=== PATIENT | female | born 1955 | race Caucasian/White ===

== ENCOUNTER → 2020-06-13 | Outpatient (CLI) | payer OTHER ==
[~2020-06-13] MED LIST: ASCO100T4 PO; IOHEXOL 180 MG/ML 10 ML VIAL. ONE; LISI10TA2 PO; MULT-245 PO; OMEG100021 PO; THYR60TA PO; methylPREDNISolone ACETATE 40 MG/ML VIAL. ONE; methylPREDNISolone ACETATE 80 MG/ML VIAL. ONE
--- NOTE | 2020-06-13 13:01 | PDOC1 ---
INITIAL PAIN CONSULT DATE OF SERVICE: DOS: DATE: 06/13/20 TIME: 12:54 CHIEF COMPLAINT: Chief Complaint: Neck and right upper extremity pain HISTORY OF PRESENT ILLNESS: 65-year-old female presents with history of pain in the base of the neck and right upper extremity for about 3 months now not the result of any specific injury or accident that she is aware of is getting worse with time and being active specially playing golf is most noticeable. Patient reports she is recently retired and she has been getting more active with golfing and activities and is beginning to become more noticeable with radiating pain in the base the neck shoulder posteriorly posterior upper arm into the forearm occasionally with numbness and tingling in the thumb and first finger at times but mostly in the upper arm in the triceps region patient reports throbbing shooting can be constant with activity has some numbness radiation into the arm and hand as well patient reports it wakes her from sleep about twice a night does not affect her bowel bladder control or ability to walk or most daily activities but she is putting up with the pain with activities. Patient has been trigger point junctions in her shoulder which was helpful temporarily also some chiropractic treatment which was done 5 times which were again temporarily helpful only. Patient did have a MRI scan of the cervical spine showing at C4-5 and C5-6 hypertrophy on the right with mild right foraminal stenosis and facet hypertrophy C5-6 shows mild right neuroforaminal stenosis as well. Patient rates her disability rating 0-10 10 being the worst as a 2 with in-house hospitalist recreation 5 with social activity 3 with sexual behavior 5 with self-care and 5 life support activities patient reports no loss of motor function but significant fatigability of the right arm and repetitive motions reaching over her head with her right arm. PAST MEDICAL HISTORY: PMH: Arthritis, hypertension PREVIOUS SURGERIES: Past Surgical Hx: Uterine prolapse 1999, total abdominal hysterectomy 2005, breast implants CURRENT MEDICATIONS: Current Meds: Active Scripts Medications Dose Route/Sig Max Daily Dose Days Date Category Fish Oil 1,000 mg Softgel ([place]-3/Dha/Epa/Fish Oil) 1,000 Mg Capsule 1,000 Mg PO DAILY 06/13/20 Reported Vitamin C (Ascorbic Acid) 100 Mg Tablet Unknown Dose PO DAILY 30 06/13/20 Reported Multi Vitamin Daily (Multivitamin) 1 Each Tablet 1 Tab PO DAILY 06/13/20 Reported Lisinopril 10 Mg Tablet 1 Tab PO DAILY 06/13/20 Reported [place] Thyroid (Thyroid,Pork) 60 Mg Tablet 1 Tab PO DAILY 06/13/20 Reported ALLERGIES; Allergies: Coded Allergies: Penicillins (Verified Allergy, Severe, Anaphylaxis, 06/13/20) aspirin (Verified Allergy, Severe, Anaphylaxis, 06/13/20) FAMILY HISTORY: Family Hx: Heart disease, diabetes SOCIAL HISTORY: Social Hx: Patient drinks alcohol about 1 drink 4 times a week smokes a illegal illicit recreational drugs is lives with her spouse 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 Extraocular movements are intact and symmetrical. Oral cavity: Mucous membranes moist and pink. Dentition is intact. NECK: Shows anterior throat supple without palpable lymphadenopathy noted. Swallow reflex symmetrical. CHEST: Shows normal on inspection. Breath sounds are clear bilaterally, no rales or rhonchi or wheezes auscultated. HEART: Shows S1, S2 clear. No murmurs auscultated. ABDOMEN: Soft, nontender, nondistended, flat. No palpable organomegaly is noted. No rebound or guarding demonstrated. BACK: Shows spine grossly in the midline. Normal-appearing cervical lordotic curvature. Cervical paraspinous muscle shows symmetrical inspection on palpation some moderate tenderness diffusely in the inferior aspect the cervical paraspinous muscles are more on the right than the left but present bilaterally patient's neck shows full rotation motion both laterally greater than 45 degrees right level is full extension full for flexion without significant difficulty. There is slightly increased thoracic kyphosis, some minor flattening of the lumbar lordotic curvature. Lumbar paraspinous muscles show symmetrical on inspection, on palpation shows some moderate tenderness diffusely throughout the upper, middle and lower distribution of the paraspinous muscles bilaterally, but without specific trigger points, without radiation of pain. EXTREMITIES: Upper extremities show deep tendon reflexes 2+ in the exception triceps tendons. Motor exam is 5 on a scale of 5 with right rib strength, biceps and triceps flexion and 5/5 on the left. Peripheral pulses are 2+ radial. No peripheral edema is noted bilaterally. Upper extremities are warm and dry to touch, equal in color and appearance. SKIN: Shows warm and dry, good turgor. No edema. No sores, rashes or bruising throughout. IMPRESSION: Impression: 65-year-old female with 3-month history increasing pain base of neck right upper extremity shoulder in a radicular fashion MRI scan cervical spine as noted Arthritis Hypertension Plan: Options were discussed with the patient including conservative medical management physical therapies and interventional techniques. Patient elects interventional techniques. We discussed a cervical epidural steroid injection using description as well as anatomical models to describe the procedure. Risks were discussed including but not limited to: Bleeding, infection, possibility of epidural hematoma and subsequent neurological compromise, dural puncture, headaches, spinal cord and/or nerve damage, side effects of steroid medication, and poor results regarding pain control. Patient understands wished to proceed. Patient will return to clinic in approximate 2 weeks for follow-up, was counseled as to return appointment activity level and side effects to be aware of. Procedure cervical epidural steroid injection at the C6-7 level, using local anesthetic under sterile prep and drape using C-arm fluoroscopic guidance under local anesthesia medications injected ; 120 mg Depo-Medrol + 5 mL normal saline and 2 mL contrast; condition at discharge is stable patient tolerated procedure well. and had no complications GINA COKER MD Jun 13, 2020 13:01
== END | disposition home or self-care (01) ==
LOC: PNCL 10:12
PROVIDERS: ATTEND Anesthesiology
DX: M54.2 Cervicalgia (principal); I10 Essential (primary) hypertension; M79.601 Pain in right arm; M19.90 Unspecified osteoarthritis, unspecified site; Z79.899 Other long term (current) drug therapy; Z98.890 Other specified postprocedural states; Z82.49 Family history of ischemic heart disease and other diseases of the circulatory system; Z83.3 Family history of diabetes mellitus; Z88.0 Allergy status to penicillin; Z88.8 Allergy status to other drugs, medicaments and biological substances; Z90.710 Acquired absence of both cervix and uterus
CPT/HCPCS: 62321; J1030; J1040; Q9965

== ENCOUNTER → 2021-10-15 | Outpatient (CLI) | payer OTHER ==
[~2021-10-15] MED LIST changes: -IOHEXOL 180 MG/ML 10 ML VIAL. ONE; +LISI10TA16 PO; -LISI10TA2 PO; +[UNRECOGNIZED DRUG - MIXTURE]; -methylPREDNISolone ACETATE 40 MG/ML VIAL. ONE; -methylPREDNISolone ACETATE 80 MG/ML VIAL. ONE
--- NOTE | 2021-10-15 11:28 | PDOC ---
Progress Note - Pain Clinic Date of Service: DOS: DATE: 10/15/21 TIME: 11:23 Diagnosis: Dx: Cervical radiculopathy with cervical degenerative disease and cervical spinal stenosis History or Present Illness: HPI: 66-year-old female returns last seen May 2020 patient did very well after cervical epidural steroid injection with a 98% improvement until July of this year the pain began to return not the result of any specific injury or accident that she is aware of but is getting worse in the base the neck and the right shoulder and upper extremity patient reports its a 5 on a scale 10 is worst average and least is a 5 today aching tight constant in the base the neck and shoulder rating the right upper extremity into the bicep as well as in the forearm and into the hand with some numbness and tingling in the fingers primarily the thumb and first finger on the right side only patient reports no r ecent injury she is been very active however the past year or so but did very well until just the past few weeks patient reports she had a new MRI scan of the cervical spine and we do have the report from that dated September 27, 2021 showing mild cervical spondylotic change with C6-7 mild disc base narrowing with mild bilateral foraminal narrowing as well as mild bilateral foraminal narrowing at C5-6 as well. Patient reports pain is constant aching tight worse with activity reaching her hand over her head on the right side waking her from sleep about once a night on average initially to do much better with distance walking doing household activities recreational activities travel with greater ease and comfort playing golf with greater ability and comfort as well. Patient reports functional significant fatigability of the right upper extremity. Patient continues to do daily exercises stretching and strengthening as well as weight lifting at her gym as well as at home also taking [id number] Aleve which helps but only by about 10 to 20%. Patient has tried Tylenol without significant improvement as well. Physical Exam: VS: Blood pressure is 120/69 pulse 58 respirations 16 temperature 97.9 F height is 5 feet 3-1/2 inches weight is 109 pounds. PE: PHYSICAL EXAMINATION: GENERAL: The patient is awake, alert, oriented, appropriate, very pleasant in demeanor HEENT: Shows normocephalic, atraumatic. Extraocular movements are intact and symmetrical. Oral cavity: Mucous membranes moist and pink. Dentition is intact. NECK: Shows anterior throat supple without palpable lymphadenopathy noted. Swallow reflex symmetrical. CHEST: Shows normal on inspection. Breath sounds are clear bilaterally, no rales or rhonchi or wheezes. HEART: Shows S1, S2 clear. No murmurs auscultated. ABDOMEN: Soft, nontender, nondistended. No palpable organomegaly is noted. BACK: Shows spine grossly in the midline. Normal-appearing cervical lordotic curvature. Cervical paraspinous muscles show symmetrical inspection, palpation some moderate tenderness diffusely bilaterally diffusely without significant radiation. Patient shows good rotation motion cervical spine with some moderate tenderness with right lateral rotation as well as extension but not with forward flexion. There is slightly increased thoracic kyphosis, some minor flattening of the lumbar lordotic curvature. EXTREMITIES: Upper extremities show deep tendon reflexes 2+ in the biceps and triceps tendons. Motor exam is 4 on a scale of 5 with right blunger, biceps and tricep flexion and 5/5 on the left. Peripheral pulses are 2+ radial. No peripheral edema is noted bilaterally. Upper extremities are warm and dry to touch, equal in color and appearance. SKIN: Shows warm and dry, good turgor. No edema. No sores, rashes or bruising throughout. Procedure: Procedure: Options were discussed with the patient. Patient's old chart was reviewed as her current medication regimen updated current review of systems updated today as well. We will preauthorize patient for a cervical epidural steroid injection as he did very well with these in the past with similar symptoms of increasing in the right upper extremity in a radicular fashion following a C6-7 dermatomal distribution as previously. Patient wait for preauthorization with her insurance provider, once approved we will have her return for translaminar approach C6-7 level cervical epidural steroid injection with fluoroscopic guidance. In meantime patient continue with stretching strength exercises well as daily exercise oral analgesics as currently. Medication Injected: Med Injected: None Condition at Discharge: Condition at Discharge: Condition at discharge is stable. GINA COKER MD Oct 15, 2021 11:28
== END | disposition home or self-care (01) ==
LOC: PNCL 10:22
PROVIDERS: ATTEND Anesthesiology
DX: M50.10 Cervical disc disorder with radiculopathy, unspecified cervical region (principal); M48.02 Spinal stenosis, cervical region; Z79.899 Other long term (current) drug therapy
CPT/HCPCS: 99212; G0463

== ENCOUNTER → 2021-10-29 | Outpatient (CLI) | payer OTHER ==
[~2021-10-29] MED LIST changes: +DEXAMETHASONE PRES.FREE 10 MG/ML VIAL. ONE; +IOHEXOL 180 MG/ML 10 ML VIAL. ONE
--- NOTE | 2021-10-29 10:08 | PDOC ---
Progress Note - Pain Clinic Date of Service: DOS: DATE: 10/29/21 TIME: 10:04 Diagnosis: Dx: Cervical radiculopathy with cervical degenerative disc disease and cervical spinal stenosis History or Present Illness: HPI: 66-year-old female returns for follow-up status post cervical epidural steroid injection in May 2020 patient did very well for over a year with pain returning initially in the right upper extremity only but now also in the left upper extremity which is new for her with some tingling in the left hand patient reports traditionally always been on the right side but is now on the left side as well patient reports is a 6 on scale 10 at all times worst least and average over the past week and a 6 today patient cries pain is tingling in the hands burning radiating the neck aching tight in the neck as well as radiating shooting into the upper extremities bilaterally. Patient reports no loss of motor function but significant fatigability with the right upper extremity but not as much fatigability with the left upper extremity. Patient reports no overt motor loss has not been dropping items patient reports it does awaken her from sleep about once every 4 hours or so. Patient reports no bowel or bladder incontinence. Physical Exam: VS: Blood pressure is 112/69 pulse 67 respirations 16 temperature is 98.4 F weight is 110 pounds. PE: PHYSICAL EXAMINATION: GENERAL: The patient is awake, alert, oriented, appropriate, very pleasant in demeanor HEENT: Shows normocephalic, atraumatic. Extraocular movements are intact and symmetrical. Oral cavity: Mucous membranes moist and pink. Dentition is intact. NECK: Shows anterior throat supple without palpable lymphadenopathy noted. Swallow reflex symmetrical. CHEST: Shows normal on inspection. Breath sounds are clear bilaterally. HEART: Shows S1, S2 clear. No murmurs auscultated. ABDOMEN: Soft, nontender, nondistended. No palpable organomegaly is noted. BACK: Shows spine grossly in the midline. Normal-appearing cervical lordotic curvature. Cervical paraspinous muscles show symmetrical with inspection, on palpation some moderate tenderness diffusely bilaterally diffusely without significant radiation in the middle and lower distribution the paraspinous muscles patient shows good rotation of motion cervical spine with lateral as well as extension flexion without significant increase in pain or difficulty. There is slightly increased thoracic kyphosis, some minor flattening of the lumbar lordotic curvature. EXTREMITIES: Upper extremities show deep tendon reflexes 2+ in the biceps and triceps tendons. Motor exam is 4 on a scale of 5 with right inspector publications, biceps and tricep flexion and 5/5 on the left. Peripheral pulses are 2+ radial. No peripheral edema is noted bilaterally. Upper extremities are warm and dry to touch, equal in color and appearance. SKIN: Shows warm and dry, good turgor. No edema. No sores, rashes or bruising throughout. Procedure: Procedure: Options discussed with the patient. Patient's old chart was use her current medication regimen updated current review of systems updated today as well. We will proceed with a cervical epidural steroid injection today with fluoroscopic guidance. Risks were discussed including but not limited to: Bleeding, infection, possibility of epidural hematoma and subsequent neurological compromise, dural puncture, headaches, spinal cord and/or nerve damage, side effects of steroid medication, and poor results regarding pain control. Patient understands and wished to proceed. Patient will return to clinic in approximately week to follow-up, was counseled as to return appointment, activity level, and side effect to be aware of. Medication Injected: Med Injected: Procedure cervical epidural steroid injection at the C6-7 level, using local anesthetic under sterile prep and drape using C-arm fluoroscopic guidance under local anesthesia medications injected ; 20 mg dexamethasone +5 mL normal saline and 2 mL contrast; condition at discharge is stable patient tolerated procedure well. and had no complications Condition at Discharge: Condition at Discharge: Condition at discharge stable, paced tolerated the procedure well and had no complications. GINA COKER MD October 29, 2021 10:08
--- NOTE | 2021-10-29 10:09 | PDOC4 ---
Procedure Note: ICD 10 Code: ICD 10 Code: M54.12 M50.30 M48.02 Procedure Note: Patient was consented for cervical epidural steroid injection fluoroscopic guidance risks were discussed including but not limited to: Bleeding, infection, possibility of epidural hematoma and subsequent neurological compromise, dural puncture, headaches, spinal cord and/or nerve damage, side effects of steroid medication, and poor results regarding pain control. Patient understands and wished to proceed. Procedure cervical epidural steroid injection at the C6-7 level, using local anesthetic under sterile prep and drape using C-arm fluoroscopic guidance under local anesthesia medications injected ; 20 mg dexamethasone +5 mL normal saline and 2 mL contrast; condition at discharge is stable patient tolerated procedure well. and had no complications GINA COKER MD October 29, 2021 10:09
== END | disposition home or self-care (01) ==
LOC: PNCL 08:33
PROVIDERS: ATTEND Anesthesiology
DX: M50.10 Cervical disc disorder with radiculopathy, unspecified cervical region (principal); M48.02 Spinal stenosis, cervical region; M54.12 Radiculopathy, cervical region; Z79.899 Other long term (current) drug therapy; Z88.0 Allergy status to penicillin; Z88.8 Allergy status to other drugs, medicaments and biological substances
CPT/HCPCS: 62321; J1100; Q9965

== ENCOUNTER → 2021-11-12 | Outpatient (CLI) | payer OTHER ==
--- NOTE | 2021-11-12 10:03 | PDOC4 ---
Procedure Note: ICD 10 Code: ICD 10 Code: M54.12 M50.30 M48.02 Procedure Note: Patient consented for cervical epidural steroid injection with fluoroscopic guidance. Risks were discussed including but not limited to: Bleeding, infection, possibility of epidural hematoma and subsequent neurological compromise, dural puncture, headaches, spinal cord and/or nerve damage, side effects of steroid medication, and poor results regarding pain control. Patient understands and wished to proceed. Procedure cervical epidural steroid injection at the C6-7 level, using local anesthetic under sterile prep and drape using C-arm fluoroscopic guidance under local anesthesia medications injected ; 20 mg dexamethasone +5 mL normal saline and 2 mL contrast; condition at discharge is stable patient tolerated procedure well. and had no complications GINA COKER MD November 12, 2021 10:03
--- NOTE | 2021-11-12 10:03 | PDOC ---
Progress Note - Pain Clinic Date of Service: DOS: DATE: 11/12/21 TIME: 09:58 Diagnosis: Dx: Cervical radiculopathy with cervical degenerative disease and cervical spinal stenosis History or Present Illness: HPI: 66-year-old female returns for follow-up status post cervical epidural steroid injection x1. Patient reports about 65% improvement still helping with the pain in the base of neck and shoulders and bilateral upper extremities left greater than right patient reports doing much better with increased activity doing home activities leisurely activities playing golf with much greater comfort and ability, and sleeping better at night. Patient reports still wakes her from sleep about once a night without numbness and tingling in the right shoulder but otherwise doing much better patient reports is tingling pain is aching in the neck tight in the shoulder, rated as a 5 on a scale 10 at all times worst least and average is a 5 today patient reports no loss of motor function was still some fatigability of the upper extremities with repetitive motion bilaterally. Patient also reports some stiffness in the neck more noticeable at night as well as the pain in the right shoulder and arm which awakens her from sleep about once a night but again is better with repositioning. Physical Exam: VS: Blood pressure is 120/79 pulse 66 respiration 16 temperature 98.2 F height is 5 feet 3 inches weight 106 pounds. PE: PHYSICAL EXAMINATION: GENERAL: The patient is awake, alert, oriented, appropriate, very pleasant in demeanor HEENT: Shows normocephalic, atraumatic. Extraocular movements are intact and symmetrical. Oral cavity: Mucous membranes moist and pink. Dentition is intact. NECK: Shows anterior throat supple without palpable lymphadenopathy noted. Swallow reflex symmetrical. CHEST: Shows normal on inspection. Breath sounds are clear bilaterally. HEART: Shows S1, S2 clear. No murmurs auscultated. ABDOMEN: Soft, nontender, nondistended. No palpable organomegaly is noted. BACK: Shows spine grossly in the midline. Normal-appearing cervical lordotic curvature. Cervical paraspinous muscles show symmetrical with inspection, on palpation some moderate tenderness diffusely in the middle and inferior aspect cervical paraspinous muscular bilaterally without asymmetry atrophy or hypertrophy, no trigger points, patient shows good rotation motion cervical spine both laterally greater than 45 degrees closer to 90 degrees as well as full extension full forward flexion. There is slightly increased thoracic kyphosis, some minor flattening of the lumbar lordotic curvature. EXTREMITIES: Upper extremities show deep tendon reflexes to in the biceps and triceps tendons. Motor exam is 4 on a scale of 5 with right rib, biceps and triceps flexion and 5/5 on the left. Peripheral pulses are 2+ radial. No peripheral edema is noted bilaterally. Upper extremities are warm and dry to touch, equal in color and appearance. SKIN: Shows warm and dry, good turgor. No edema. No sores, rashes or bruising throughout. Procedure: Procedure: Options discussed with the patient. Patient's old chart was reviewed as her current medication regimen updated current review of systems updated today as well. We will proceed with a cervical epidural steroid injection today with fluoroscopic guidance. Risks were discussed including but not limited to: Bleeding, infection, possibility of epidural hematoma and subsequent neurological compromise, dural puncture, headaches, spinal cord and/or nerve damage, side effects of steroid medication, and poor results regarding pain control. Patient understands and wished to proceed. Patient will return to clinic in approximately 2 weeks for follow-up, was counseled as to return appointment, activity level, and side effects to be aware of. Medication Injected: Med Injected: Procedure cervical epidural steroid injection at the C6-7 level, using local anesthetic under sterile prep and drape using C-arm fluoroscopic guidance under local anesthesia medications injected ; 20 mg dexamethasone +5 mL normal saline and 2 mL contrast; condition at discharge is stable patient tolerated procedure well. and had no complications Condition at Discharge: Condition at Discharge: Condition at discharge is stable, patient tolerated the procedure well had no complications. GINA COKER MD November 12, 2021 10:02
== END | disposition home or self-care (01) ==
LOC: PNCL 08:23
PROVIDERS: ATTEND Anesthesiology
DX: M50.10 Cervical disc disorder with radiculopathy, unspecified cervical region (principal); M48.02 Spinal stenosis, cervical region; M54.12 Radiculopathy, cervical region; Z79.899 Other long term (current) drug therapy; Z88.0 Allergy status to penicillin; Z88.8 Allergy status to other drugs, medicaments and biological substances
CPT/HCPCS: 62321; J1100; Q9965